=== PATIENT | female | born 1995 | race Caucasian/White ===

== ENCOUNTER → 2017-11-25 | Outpatient (CLI) | payer OTHER ==
[2017-11-25 15:07] LABS: Glucose 88 mg/dL (74-99)
[2017-11-25 15:09] LABS: HGB 12.9 gm/dL (11.4-16.0); MCH 31.4 pg (25.0-35.0); MCHC 33.1 g/dL (31.0-37.0); MCV 94.8 fL (80.0-100.0); Mean Platelet Volume 7.3; Platelet Count 272 k/uL (150-450); RBC 4.11 m/uL (3.80-5.40); RDW 12.5 % (11.5-15.5); WBC 10.1 k/uL (3.8-10.6)
--- NOTE | 2017-11-25 15:43 | US ---
EXAMINATION TYPE: Transabdominal DATE OF EXAM: 05/28/17 COMPARISON: NONE CLINICAL HISTORY: Z36 CONFIRM DATES. Confirm dates, 3, para 2 EXAM PERFORMED: Transabdominal (TA) EXAM MEASUREMENTS: GESTATIONAL AGE / DATING Physician Established: (9 weeks/1 days) EDC: 06/29/2018 Dates by LMP: (9 weeks/1 days) EDC: 06/29/2018 Dates by First Scan: This is 1st scan Dates by Current Scan for: ( 8 weeks/4 days) EDC: 07/03/2018 MATERNAL ANATOMY Uterus: 12.2 x 6.4 x 7.0cm, anteverted Right Ovary: 2.5 x 2.0 x 2.1cm Left Ovary: 3.1 x 1.6 x 1.6cm Post CDS / Adnexa: wnl Presence of free fluid: no Presence of corpus luteal cyst: right ovary: 1.2 x 1.2 x 1.1cm hypoechoic area, possible corpus luteu m Presence of subchorionic bleed: no GESTATION / SURVEY CRL: 2.0cm (8 weeks/4 days) Yolk Sac (normal less than 6mm): 3.9mm Heart Rate: 164 bpm Rhythm: Normal IUP: Viable IUP Date of LMP: 09/22/2017 Beta HcG (if available): Not available at time of exam. Viable single IUP measuring 8 weeks 4 days with a heart rate of 164bpm and an estimated delivery date of 07/03/2018. IMPRESSION: Viable single IUP measuring 8 weeks 4 days with a heart rate of 164bpm and an estimated delivery date of 07/03/2018.
[2017-11-26 04:08] LABS: HIV 1 AB Non-Reactive (Non-Reactive); HIV AB P24 Non-Reactive (Non-Reactive); HIV P24 AG Non-Reactive (Non-Reactive)
== END | disposition home or self-care (01) ==
LOC: RADUSWWP 14:36
PROVIDERS: ATTEND Obstetrics & Gynecology
DX: Z36.89 Encounter for other specified antenatal screening (principal); Z34.81 Encounter for supervision of other normal pregnancy, first trimester; Z3A.09 9 weeks gestation of pregnancy
CPT/HCPCS: 76801; 82565; 82947; 85027; 86762; 86780; 86850; 86900; 86901; 87340; 87390

== ENCOUNTER 2018-06-30 06:03 | Inpatient (IN) | payer OTHER ==
[2018-06-30] MEDS ORDERED: OXYTOCIN 10 UNIT/ML 1 ML VIAL IM PRN (06:12)
[2018-06-30] MEDS ORDERED: METHYLERGONOVINE 0.2 MG/ML 1 ML AMP IM PRN (06:12)
[2018-06-30] MEDS ORDERED: CARBOPROST TROMETHAMINE 250 MCG/ML 1 ML AMP IM PRN (06:12)
[2018-06-30] MEDS ORDERED: TERBUTALINE 1 MG/ML VIAL SQ PRN (06:12)
[2018-06-30] MEDS ORDERED: LIDOCAINE 0.5% (PF) 5 MG/ML (50 ML SDV) SQ PRN (06:12)
[2018-06-30] MEDS ORDERED: OXYTOCIN 30 UNITS/500 ML NS 30 UNIT in SALINE 1 500ML.BAG IV SCH (06:15)
[2018-06-30 06:20] VITALS: BMI 28.3
[2018-06-30] MEDS: LACTATED RINGERS 1,000 ML IV SCH ×3 (06:27→11:57)
[2018-06-30 06:37] LABS: Basophils % (A) 0 %; Eosinophils # (A) 0.2 k/uL (0-0.7); Eosinophils % (A) 2 %; HCT 36.4 % (34.0-46.0); HGB 12.4 gm/dL (11.4-16.0); Lymphocytes # (A) 2.3 k/uL (1.0-4.8); Lymphocytes % (A) 24 %; MCH 32.4 pg (25.0-35.0); MCHC 34.1 g/dL (31.0-37.0); MCV 95.1 fL (80.0-100.0); Monocytes # (A) 0.4 k/uL (0-1.0); Monocytes % (A) 4 %; Neutrophils # (A) 6.6 k/uL (1.3-7.7); Neutrophils % (A) 69 %; Platelet Count 217 k/uL (150-450); RBC 3.83 m/uL (3.80-5.40); RDW 13.4 % (11.5-15.5); WBC 9.6 k/uL (3.8-10.6)
[2018-06-30] MEDS ORDERED: BUTORPHANOL 1 MG/ML 1 ML VIAL IV PRN (07:50)
[2018-06-30] MEDS ORDERED: fentaNYL (PF) 50 MCG/ML 5 ML AMP ONE (11:03)
[2018-06-30] MEDS ORDERED: ROPIVACAINE 5MG/ML 20ML VIAL ONE (11:03)
[2018-06-30] MEDS ORDERED: SODIUM CHLORIDE 0.9% 100 ML BAG ONE (11:03)
[2018-06-30] MEDS ORDERED: ROPIVACAINE 100 MG, fentaNYL (PF) 200 MCG in SODIUM CHLORIDE 0.9% 76 ML EPIDURAL ONE (11:32)
--- NOTE | 2018-06-30 13:19 | P.HPOB ---
History of Present Illness H&P Date: 06/30/18 Chief Complaint: induction of labor 22 year old presents at 40 weeks 1 day for induction of labor. Her cervix is 3/80/-2 and she is marilee irregularly. heart tones are 130 with moderate variability and accels. Review of Systems All systems: negative Constitutional: Denies chills, Denies fever Eyes: denies blurred vision, denies pain Ears, nose, mouth and throat: Denies headache, Denies sore throat Cardiovascular: Denies chest pain, Denies shortness of breath Respiratory: Denies cough Gastrointestinal: Denies abdominal pain, Denies diarrhea, Denies nausea, Denies vomiting Genitourinary: Denies dysuria, Denies hematuria Musculoskeletal: Denies myalgias Integumentary: Denies pruritus, Denies rash Neurological: Denies numbness, Denies weakness Psychiatric: Denies anxiety, Denies depression Endocrine: Denies fatigue, Denies weight change Past Medical History Past Medical History: No Reported History Additional Past Medical History / Comment(s): OB history: She has had 2 previous vaginal deliveries. THis is her third and she had care with me since 8 weeks. A+, abs neg, Rub Imm, RPR NR, Hep B neg, HIV NR. GBS neg. abnormal 1hr, normal 3 hr GTT. History of Any Multi-Drug Resistant Organisms: None Reported Past Surgical History: No Surgical Hx Reported Past Anesthesia/Blood Transfusion Reactions: No Reported Reaction Past Psychological History: No Psychological Hx Reported Smoking Status: Never smoker Past Alcohol Use History: None Reported Past Drug Use History: None Reported - Past Family History Father Family Medical History: No Reported History Medications and Allergies Home Medications Medication Instructions Recorded Confirmed Type RX: Pnv,Calcium 72/Iron/Folic Acid 1 tab PO DAILY 09/13/15 06/30/18 History [ Plus Tablet] Allergies Allergy/AdvReac Type Severity Reaction Status Date / Time No Known Allergies Allergy Verified 06/30/18 06:10 Exam Osteopathic Statement: *. No significant issues noted on an osteopathic structural exam other than those noted in the History and Physical/Consult. Vital Signs Temp Pulse Resp BP 06/30/18 06:15 96.6 F L 113 H 14 126/71 Intake and Output 06/29/18 06/30/18 06/30/18 22:59 06:59 14:59 Other: Weight 72.575 kg HEart: RRR Lungs: CTAB Abdomen: soft, nontender Extremeties: neg saeed's Results Result Diagrams: 06/30/18 06:24 Assessment and Plan (1) Normal labor Current Visit: Yes Status: Acute Code(s): O80 - ENCOUNTER FOR FULL-TERM UNCOMPLICATED DELIVERY; Z37.9 - OUTCOME OF DELIVERY, UNSPECIFIED SNOMED Code(s): 01073923 Plan: 1. induction of labor with amniotomy and pitocin 2. anticipate normal vaginal delivery.
[2018-06-30] MEDS ORDERED: SIMETHICONE 80 MG CHEWABLE PO PRN (13:44)
[2018-06-30] MEDS ORDERED: WITCH HAZEL 1 EACH MED..PAD TOPICAL PRN (13:44)
[2018-06-30] MEDS ORDERED: diphenhydrAMINE 25 MG CAP PO PRN (13:44)
[2018-06-30] MEDS ORDERED: BENZOCAINE/MENTHOL SPRAY 1 GM/SPRAY AEROSOL TOPICAL PRN (13:44)
[2018-06-30] MEDS ORDERED: diphenhydrAMINE 50 MG CAP PO PRN (13:44)
[2018-06-30] MEDS ORDERED: diphenhydrAMINE 50 MG/ML 1 ML VIAL IVP PRN ×2 (13:44)
[2018-06-30] MEDS ORDERED: HYDROCORTISONE 2.5% RECTAL CREAM 30 GM TUBE RECTAL PRN (13:44)
[2018-06-30] MEDS ORDERED: ZOLPIDEM 5 MG TAB PO PRN (13:44)
[2018-06-30] MEDS ORDERED: ACETAMINOPHEN TAB 325 MG TAB PO PRN (13:44)
[2018-06-30] MEDS ORDERED: LANOLIN CREAM 5 GM TUBE TOPICAL PRN (13:44)
[2018-06-30] MEDS ORDERED: OXYTOCIN 20 UNITS/1000 ML NS 1,000 ML IV SCH (13:45)
[2018-06-30] MEDS: IBUPROFEN 600 MG TAB PO PRN (16:55)
[2018-06-30] MEDS: SENNOSIDES-DOCUSATE SODIUM 1 EACH TAB PO SCH (21:11)
[2018-07-01] MEDS: IBUPROFEN 600 MG TAB PO PRN (08:00)
[2018-07-01] MEDS: SENNOSIDES-DOCUSATE SODIUM 1 EACH TAB PO SCH (08:00)
[2018-07-01 08:14] VITALS: BP 122/69; PULSE 101; RESP 16; TEMP 97.9
--- NOTE | 2018-07-01 08:19 | P.DS ---
Providers Date of admission: 06/30/18 06:03 Expected date of discharge: 07/01/18 Attending physician: Maria Teresa Saunders Primary care physician: Stated None - Discharge Diagnosis(es) (1) Normal labor Current Visit: Yes Status: Resolved (2) Normal vaginal delivery Current Visit: Yes Status: Acute Hospital Course: Patient presented for induction of labor. She underwent normal vaginal delivery. Her course was uncomplicated. She'll be discharged home day #1 in stable condition to follow-up with me in 6 weeks. Plan - Discharge Summary New Discharge Prescriptions: New Ibuprofen [Motrin] 600 mg PO Q6HR PRN #30 tab PRN Reason: Mild Pain Or Fever >= 100.5 No Action Pnv,Calcium 72/Iron/Folic Acid [ Plus Tablet] 1 tab PO DAILY Discharge Medication List Pnv,Calcium 72/Iron/Folic Acid [ Plus Tablet] 1 tab PO DAILY 09/13/15 [History] Ibuprofen [Motrin] 600 mg PO Q6HR PRN #30 tab 07/01/18 [Rx] Follow up Appointment(s)/Referral(s): Maria Teresa Saunders DO [Doctor of Osteopathic Medicine] - 6 Weeks Discharge Disposition: HOME SELF-CARE
--- NOTE | 2018-07-01 08:20 | P.PROBDLV ---
Vaginal Delivery Note - . Vaginal Delivery Note: 22 year old presents at 40 weeks 1 day for induction of labor. Her cervix is 3/80/-2 and she is marilee irregularly. heart tones are 130 with moderate variability and accels. Pitocin was started. An amniotomy was performed at 7:49 AM clear fluid noted. When she was uncomfortable the patient did get an epidural. Her cervix was completely dilated at 1335. She pushed, delivered a viable female infant over intact perineum under epidural anesthesia at 1338. Head delivered OA, anterior shoulder delivered gentle downward guidance followed by posterior shoulder and rest of body. Nose and mouth bulb suctioned, cord clamped and cut, infant placed mother's abdomen. Apgars 9, 9, weight 7 lbs. 1 oz. Placenta delivered spontaneously, intact with three-vessel cord at 1340. Vagina, cervix, and perineum were inspected. No lacerations noted. Estimated blood loss 100 mL. Mother and baby in stable condition.
== END 2018-07-01 14:15 | disposition home or self-care (01) | DRG 807 ==
LOC: 4FBP 06:03
PROVIDERS: ADMIT Obstetrics & Gynecology; ATTEND Obstetrics & Gynecology
PROC: 10907ZC Drainage of Amniotic Fluid, Therapeutic from Products of Conception, Via Natural or Artificial Opening (ICD-10-PCS; 2018-06-30)
PROC: 3E033VJ Introduction of Other Hormone into Peripheral Vein, Percutaneous Approach (ICD-10-PCS; 2018-06-30)
PROC: 10E0XZZ Delivery of Products of Conception, External Approach (ICD-10-PCS; principal; 2018-07-01)
PROC: 00HU33Z Insertion of Infusion Device into Spinal Canal, Percutaneous Approach (ICD-10-PCS; 2018-07-01)
PROC: 3E0R3BZ Introduction of Anesthetic Agent into Spinal Canal, Percutaneous Approach (ICD-10-PCS; 2018-07-01)
DX: O80 Encounter for full-term uncomplicated delivery (principal); Z37.0 Single live birth; Z3A.40 40 weeks gestation of pregnancy
CPT/HCPCS: 85025; 86850; 86900; 86901

== ENCOUNTER → 2019-02-11 | Outpatient (CLI) | payer OTHER ==
[2019-02-11 14:24] LABS: HGB 12.9 gm/dL (11.4-16.0); MCH 31.8 pg (25.0-35.0); MCHC 33.9 g/dL (31.0-37.0); MCV 93.9 fL (80.0-100.0); Mean Platelet Volume 7.3; Platelet Count 283 k/uL (150-450); RBC 4.05 m/uL (3.80-5.40); RDW 12.4 % (11.5-15.5); WBC 11.3 k/uL (3.8-10.6)
[2019-02-11 14:39] LABS: African American GFR (CKD) >90 (>60 ml/min/1.73 sqM); Glucose 79 mg/dL (74-99); Non-African American GFR(CKD) >90 (>60 ml/min/1.73 sqM)
--- NOTE | 2019-02-11 15:24 | US ---
EXAMINATION TYPE: Transabdominal DATE OF EXAM: 02/11/2019 2:36 PM COMPARISON: NONE CLINICAL HISTORY: Z36 CONFIRM DATES. Positive beta-hCG test. EXAM PERFORMED: Transabdominal (TA) EXAM MEASUREMENTS: GESTATIONAL AGE / DATING Physician Established: Not yet established Dates by LMP: (12 weeks/2 days) EDC: 08/24/2019 Dates by First Scan: No previous this is first scan Dates by Current Scan for: (12 weeks/4 days) EDC: 08/22/2019 MATERNAL ANATOMY Uterus: 15.3 x 8.0 x 8.9 cm Right Ovary: 2.7 x 2.1 x 2.7 cm Left Ovary: 3.2 x 1.5 x 2.4 cm Post CDS / Adnexa: wnl Presence of free fluid: No Presence of corpus luteal cyst: Yes, left ovary measuring 1.5 x 1.3 x 1.1 cm Presence of subchorionic bleed: No GESTATION / SURVEY CRL: 6.1 cm (12 weeks/4 days) Heart Rate: 161 bpm Rhythm: Normal IUP: Viable IUP Date of LMP: 11/17/2018 Single live intrauterine gestation is seen as gestational sac and pole identified. Yolk sac not seen. No free fluid in pelvic cul-de-sac. Both ovaries are seen without concerning extraovarian adnexal mass. Left ovary shows 1.3 cm periphera l oval isoechoic area could reflect an involuting corpus luteal cyst. IMPRESSION: Single live intrauterine gestation is confirmed, mean crown-rump length is 6.1 cm corresp onding to 12 weeks 4 day old fetus.
[2019-02-11 19:55] LABS: Hepatitis B Surface Antigen Non-Reactive (Non-Reactive)
== END | disposition home or self-care (01) ==
LOC: RADUSWWP 13:50
PROVIDERS: ATTEND Obstetrics & Gynecology
DX: Z36.9 Encounter for antenatal screening, unspecified (principal); Z34.81 Encounter for supervision of other normal pregnancy, first trimester
CPT/HCPCS: 36415; 76801; 82565; 82947; 85027; 86762; 86780; 86850; 86900; 86901; 87340

== ENCOUNTER 2019-08-04 17:40 | Outpatient (CLI) | payer OTHER ==
[2019-08-04 18:25] VITALS: BP 122/59; PULSE 110; RESP 16; TEMP 97.4
--- NOTE | 2019-08-04 18:58 | P.MSEPDOC ---
Presenting Problems - Arrival Data Date of Arrival on Unit: 08/04/19 Time of Arrival on Unit: 17:40 Mode of Transport: Ambulatory - Complaint OB-Reason for Admission/Chief Complaint: Rule Out SROM Comment: Milky mucus d/c x 1 at 1300. Medical History - Information : 4 Para: 3 Term: 3 : 0 Abortions: Spontaneous or Elective: 0 Number of Living Children: 3 - Gestational Age Gestational Age by HERNANDEZ (wks/days): 37 Weeks and 1 Days Review of Systems - Review of Systems Constitutional: No problems Breast: No problems ENT: No problems Cardiovascular: No problems Respiratory: No problems Gastrointestinal: No problems Genitourinary: No problems Musculoskeletal: No problems Neurological: No problems Skin: No problems Vital Signs - Temperature Temperature: 97.4 F Temperature Source: Temporal Artery Scan - Pulse Right Sitting Brachial Pulse Rate: 110 Pulse Assessment Method: Automatic Cuff - Respirations Respiratory Rate: 16 Oxygen Delivery Method: Room Air O2 Sat by Pulse Oximetry: 98 - Blood Pressure Right Arm Sitting Blood Pressure: 122/59 Blood Pressure Mean: 80 Blood Pressure Source: Automatic Cuff Medical Screen Scoring (Pre) - Cervical Exam Dilation: Exam Deferred Effacement: Exam Deferred Membranes: Intact - Uterine Contractions Frequency: N/A - Maternal Vital Signs Maternal Temperature: N/A Maternal Blood Pressure: N/A Signs of Preeclampsia: N/A Maternal Respirations: N/A - Maternal Trauma Maternal Trauma: N/A - Assessment - Baby A Baseline FHR: 140 Heart Rate - NICHD Category: Category I (Normal) = 0 NST: Reactive Position: N/A Station: N/A - Total Score - Baby A Total Score - Baby A: 0 - Total Score - Baby B Total Score - Baby B: 0 - Total Score - Baby C Total Score - Baby C: 0 - Level of Risk - Baby A Level of Risk - Baby A: Low (0-5) - Level of Risk - Baby B Level of Risk - Baby B: Low (0-5) - Level of Risk - Baby C Level of Risk - Baby C: Low (0-5) Physician Notification (Pre) - Physician Notified Physician Notified Date: 08/04/19 Physician Notified Time: 18:14 New Order Received: Yes - Notification Comment Comment: Homar leigh\Dr. Arzate, advsd , 37 03/03, c/o possible SROM at 1300, one time mucus/milky discharge at 1300, no continued leaking, no contractions, reactive NST, has appt with Dr. Saunders tomorrow at 0900. States to d/c home. Disposition - Disposition OB Disposition: Discharge to home, Written follow up instructions reviewed Discharge Date: 08/04/19 Discharge Time: 18:17 I agree with the RN Medical Screening Exam: Yes Risk & Benefit of care provided described in d/c instruction: Yes Diagnosis: FALSE LABOR AT OR AFTER 37 COMPLETED WEEKS OF GESTATION
== END 2019-08-04 18:17 | disposition home or self-care (01) ==
LOC: FBPOP 17:40
PROVIDERS: ATTEND Obstetrics & Gynecology
DX: O47.1 False labor at or after 37 completed weeks of gestation (principal); Z3A.37 37 weeks gestation of pregnancy
CPT/HCPCS: 59025; 84112; G0463; 99213

== ENCOUNTER 2019-08-22 00:30 | Inpatient (IN) | payer OTHER ==
[2019-08-22] MEDS ORDERED: OXYTOCIN 10 UNIT/ML 1 ML VIAL IM PRN (01:10)
[2019-08-22] MEDS ORDERED: LIDOCAINE 0.5% (PF) 5 MG/ML (50 ML SDV) SQ PRN (01:10)
[2019-08-22] MEDS ORDERED: CARBOPROST TROMETHAMINE 250 MCG/ML 1 ML AMP IM PRN (01:10)
[2019-08-22] MEDS ORDERED: METHYLERGONOVINE 0.2 MG/ML 1 ML AMP IM PRN (01:10)
[2019-08-22] MEDS ORDERED: TERBUTALINE 1 MG/ML VIAL SQ PRN (01:10)
[2019-08-22] MEDS ORDERED: OXYTOCIN 30 UNITS/500 ML NS 30 UNIT in SALINE 1 500ML.BAG IV SCH (01:15)
[2019-08-22 01:24] VITALS: RESP 16
[2019-08-22 01:36] LABS: Basophils % (A) 0 %; Eosinophils # (A) 0.1 k/uL (0-0.7); Eosinophils % (A) 1 %; HCT 37.1 % (34.0-46.0); HGB 12.6 gm/dL (11.4-16.0); Lymphocytes # (A) 1.8 k/uL (1.0-4.8); Lymphocytes % (A) 17 %; MCH 31.6 pg (25.0-35.0); MCV 92.7 fL (80.0-100.0); Mean Platelet Volume 7.9; Monocytes # (A) 0.4 k/uL (0-1.0); Monocytes % (A) 4 %; Neutrophils # (A) 8.2 k/uL (1.3-7.7); Neutrophils % (A) 76 %; Platelet Count 274 k/uL (150-450); RDW 13.9 % (11.5-15.5); WBC 10.8 k/uL (3.8-10.6)
[2019-08-22] MEDS: LACTATED RINGERS 1,000 ML IV SCH ×2 (01:37→02:04)
[2019-08-22] MEDS ORDERED: AMPICILLIN 2,000 MG in SODIUM CHLORIDE 0.9% 100 ML IVPB STA (01:40)
--- NOTE | 2019-08-22 01:42 | P.HPOB ---
History of Present Illness H&P Date: 08/22/19 Chief Complaint: Contractions This patient is a pleasant 23-year-old 4 para 3 female estimated date of confinement 08/24/2019 estimated gestational age 39-5/7 weeks who presents to labor and delivery with complaints of contractions since earlier this evening. Patient is in the office morning was 2 cm dilated is now 5 cm dilated in active labor. Pre- care per Dr. Saunders appears to be uncomplicated. Review of Systems Genitourinary: Reports Menstruation: Reports amenorrhea Past Medical History Past Medical History: No Reported History Additional Past Medical History / Comment(s): Patient's had 3 spontaneous vaginal deliveries. History of Any Multi-Drug Resistant Organisms: None Reported Past Surgical History: No Surgical Hx Reported Past Anesthesia/Blood Transfusion Reactions: No Reported Reaction Past Psychological History: No Psychological Hx Reported Smoking Status: Never smoker Past Alcohol Use History: None Reported Past Drug Use History: None Reported - Past Family History Father Family Medical History: No Reported History Medications and Allergies Home Medications Medication Instructions Recorded Confirmed Type Pnv,Calcium 72/Iron/Folic Acid 1 tab PO DAILY 09/13/15 08/22/19 History [ Plus Tablet] Allergies Allergy/AdvReac Type Severity Reaction Status Date / Time No Known Allergies Allergy Verified 08/22/19 01:09 Exam Vital Signs Temp Pulse Resp BP Pulse Ox 08/22/19 01:21 97.0 F L 93 16 128/74 98 Intake and Output 08/21/19 08/21/19 08/22/19 14:59 22:59 06:59 Other: Weight 73.936 kg - OBG Physical Exam Abdomen: bowel sounds normal, no diffuse tenderness, no bruit present, no guarding noted, no hepatomegaly, no splenomegaly, no mass Vulva: both: normal Vagina: normal moisture, no discharge Cervix: Cervix is 5 cm dilated percent effaced -2 station. Uterus: enlarged (Fundal height consistent with gestational age.) Results blood work shows she is A positive rubella immune RPR is nonreactive hepatitis B is negative group B strep was negative, ultrasounds showed normal anatomy, 1 hour Glucola was abnormal however 3 hour GTT was normal. Assessment and Plan (1) 39 weeks gestation of Narrative/Plan: This is a pleasant 23-year-old 4 para 3 female 39-5/7 weeks' gestation who presents with complaints of regular painful contractions found to be in active labor. Patient has a history of positive group B strep with previous therefore plan is IV antibiotics, and anticipate vaginal delivery Current Visit: Yes Status: Acute Code(s): Z3A.39 - 39 WEEKS GESTATION OF SNOMED Code(s): 94809257 (2) History of group B Streptococcus (GBS) infection Current Visit: Yes Status: Acute Code(s): Z86.19 - PERSONAL HISTORY OF OTHER INFECTIOUS AND PARASITIC DISEASES SNOMED Code(s): 239394478 (3) Normal labor Current Visit: No Status: Resolved Code(s): O80 - ENCOUNTER FOR FULL-TERM UNCOMPLICATED DELIVERY; Z37.9 - OUTCOME OF DELIVERY, UNSPECIFIED SNOMED Code(s): 52556285
--- NOTE | 2019-08-22 02:58 | P.PROBDLV ---
Vaginal Delivery Note - . Vaginal Delivery Note: Normal spontaneous vaginal delivery viable female infant Apgars 8 and 9 delivery time is 0-46 hours. Please see dictated H&P for intimate details of this patient's admission. Brief summary this is a pleasant 23-year-old 4 para 3 female 39-5/7 weeks gestation admitted to labor and delivery in active labor. On admission patient is 5 cm dilated she is artificial rupture membranes for clear fluid. She is given 2 g and Due To History of Positive Strep in a Previous . Patient's Labor Progresses She Gets an Epidural for Pain Control. Patient Is to Complete Pushes the Head to the Perineum. Posterior Perineum Was Supported We Have Controlled Delivery of Infant's Head over the Intact Perineum. Mouth and Nares Are Bulb Suctioned. There Is No Evidence of a Nuchal Cord. With Gentle Downward Traction We Have Delivery Anterior Posterior Shoulder and Rest This 's Body. Infant's Position Is Os but Anterior Presentation. This Is a Vigorous Viable Female Infant Apgars 8 and 9 Delivery Time Is 0-46 Hours. Has Spontaneous Respirations and Good Cry. After Delivery of the the Umbilical Cord Is Doubly Clamped and Cut after This Done Pulsating. The Placenta Spontaneously Delivered Intact Estimated Blood Loss 100 ML. There Are No Lacerations No Repairs Required.
[2019-08-22] MEDS ORDERED: SIMETHICONE 80 MG CHEWABLE PO PRN (02:59)
[2019-08-22] MEDS ORDERED: HYDROCORTISONE 2.5% RECTAL CREAM 30 GM TUBE RECTAL PRN (02:59)
[2019-08-22] MEDS ORDERED: diphenhydrAMINE 50 MG/ML 1 ML VIAL IVP PRN (02:59)
[2019-08-22] MEDS ORDERED: WITCH HAZEL 1 EACH MED..PAD TOPICAL PRN (02:59)
[2019-08-22] MEDS ORDERED: diphenhydrAMINE 25 MG CAP PO PRN (02:59)
[2019-08-22] MEDS ORDERED: ZOLPIDEM 5 MG TAB PO PRN (02:59)
[2019-08-22] MEDS ORDERED: ACETAMINOPHEN TAB 325 MG TAB PO PRN (02:59)
[2019-08-22] MEDS ORDERED: LANOLIN CREAM 5 GM TUBE TOPICAL PRN (02:59)
[2019-08-22] MEDS ORDERED: BISACODYL 10 MG SUPP RECTAL PRN (02:59)
[2019-08-22] MEDS ORDERED: BENZOCAINE/MENTHOL SPRAY 1 GM/SPRAY AEROSOL TOPICAL PRN (02:59)
[2019-08-22] MEDS ORDERED: OXYTOCIN 20 UNITS/1000 ML NS 1,000 ML IV SCH (03:00)
[2019-08-22] MEDS: IBUPROFEN 600 MG TAB PO PRN ×2 (05:16→15:41)
[2019-08-22] MEDS ORDERED: AMPICILLIN 1,000 MG in SODIUM CHLORIDE 0.9% 50 ML IVPB SCH (06:00)
[2019-08-22] MEDS: SENNOSIDES-DOCUSATE SODIUM 1 EACH TAB PO SCH (08:45)
[2019-08-22] MEDS ORDERED: ROPIVACAINE 100 MG, fentaNYL (PF) 200 MCG in SODIUM CHLORIDE 0.9% 76 ML EPIDURAL ONE (18:42)
--- NOTE | 2019-08-23 06:21 | P.PNOBGVD ---
Subjective - Subjective Patient reports: Reports appetite normal, Reports voiding normally, Reports pain well controlled, Reports ambulating normally : doing well Objective - Latest Vital Signs Latest vital signs: Vital Signs Temp Pulse Resp BP 08/23/19 00:00 98.2 F 82 16 105/58 08/22/19 15:52 98.3 F 72 16 119/70 08/22/19 11:54 98.2 F 68 16 115/73 08/22/19 08:00 98.1 F 67 16 114/67 Intake and Output 08/22/19 08/22/19 08/23/19 14:59 22:59 06:59 Other: # Voids 1 - Exam Lungs: bilateral: normal Chest: Normal S1, Normal S2 Extremities: Present: normal Abdomen: Present: normal appearance, soft Uterus: Present: normal, firm Assessment and Plan Assessment: day #1. Patient is resting without complaints and wishes to go home. Vital signs are stable and she is afebrile. Uterus is firm nontender she's having normal lochia. My impression is a normal course. Plan is to continue routine care and discharge home today. (1) 39 weeks gestation of Current Visit: Yes Status: Acute Code(s): Z3A.39 - 39 WEEKS GESTATION OF PRE GNANCY SNOMED Code(s): 87213837 (2) History of group B Streptococcus (GBS) infection Current Visit: Yes Status: Acute Code(s): Z86.19 - PERSONAL HISTORY OF OTHER INFECTIOUS AND PARASITIC DISEASES SNOMED Code(s): 394945285 (3) Normal labor Current Visit: No Status: Resolved Code(s): O80 - ENCOUNTER FOR FULL-TERM UNCOMPLICATED DELIVERY; Z37.9 - OUTCOME OF DELIVERY, UNSPECIFIED SNOMED Code(s): 03909115
--- NOTE | 2019-08-23 06:24 | P.DS ---
Providers Date of admission: 08/22/19 01:00 Expected date of discharge: 08/23/19 Attending physician: Maria Teresa Saunders Primary care physician: Stated None - Discharge Diagnosis(es) (1) 39 weeks gestation of Current Visit: Yes Status: Acute (2) History of group B Streptococcus (GBS) infection Current Visit: Yes Status: Acute (3) Normal labor Current Visit: No Status: Resolved Hospital Course: Please see dictated H&P for intimate details of this patient's admission. Brief summary this pleasant 23-year-old 4 para 3 female 39-5/7 weeks gestation who is admitted to labor and delivery in active labor. Patient quickly goes on have a vaginal delivery viable female infant please see dictated delivery note. day #1 patient without complaints wishes to go home. Patient's felt be stable for discharge home follow up with Dr. Saunders 6 weeks. Procedures: Normal spontaneous vaginal delivery Patient Condition at Discharge: Good Plan - Discharge Summary New Discharge Prescriptions: New Ibuprofen [Motrin] 600 mg PO Q6HR PRN #40 tab PRN Reason: Mild Pain Or Fever >= 100.5 No Action Pnv,Calcium 72/Iron/Folic Acid [ Plus Tablet] 1 tab PO DAILY Discharge Medication List Pnv,Calcium 72/Iron/Folic Acid [ Plus Tablet] 1 tab PO DAILY 09/13/15 [History] Ibuprofen [Motrin] 600 mg PO Q6HR PRN #40 tab 08/23/19 [Rx] Follow up Appointment(s)/Referral(s): Maria Teresa Saunders DO [Doctor of Osteopathic Medicine] - 6 Weeks Patient Instructions/Handouts: Vaginal Delivery (DC) Activity/Diet/Wound Care/Special Instructions: No intercourse or anything per vagina for 6 weeks. Please call if any fever, chills, excessive vaginal bleeding, and/or abdominal pain. Discharge Disposition: HOME SELF-CARE
[2019-08-23] MEDS: SENNOSIDES-DOCUSATE SODIUM 1 EACH TAB PO SCH (07:42)
[2019-08-23] MEDS: IBUPROFEN 600 MG TAB PO PRN (07:43)
[2019-08-23 07:51] VITALS: BP 110/75; PULSE 63; TEMP 98.4
--- NOTE | 2019-08-25 17:18 | P.MSEPDOC ---
Presenting Problems - Arrival Data Date of Arrival on Unit: 08/22/19 Time of Arrival on Unit: 01:00 Mode of Transport: Wheelchair - Complaint OB-Reason for Admission/Chief Complaint: Possible Onset of Labor Medical History - Information : 4 Para: 3 Term: 3 : 0 Abortions: Spontaneous or Elective: 0 Number of Living Children: 3 - Gestational Age Gestational Age by HERNANDEZ (wks/days): 39 Weeks and 5 Days Review of Systems - Review of Systems Constitutional: No problems Breast: No problems ENT: No problems Cardiovascular: No problems Respiratory: No problems Gastrointestinal: No problems Genitourinary: No problems Musculoskeletal: No problems Neurological: No problems Skin: No problems Vital Signs - Temperature Temperature: 98.4 F Temperature Source: Oral - Pulse Right Sitting Brachial Pulse Rate: 63 Pulse Assessment Method: Automatic Cuff - Respirations Respiratory Rate: 16 Oxygen Delivery Method: Room Air - Blood Pressure Right Arm Sitting Blood Pressure: 110/75 Blood Pressure Mean: 86 Blood Pressure Source: Automatic Cuff Medical Screen Scoring (Pre) - Cervical Exam Dilation: 4-7 cm = 2 Effacement: More than 50% = 2 Membranes: Intact - Uterine Contractions Frequency: > 5 minutes apart = 1 Duration: > 40 seconds = 2 Intensity: Contraction palpated strong = 1 - Maternal Vital Signs Maternal Temperature: N/A Maternal Blood Pressure: N/A Signs of Preeclampsia: N/A - Maternal Trauma Maternal Trauma: N/A - Assessment - Baby A Baseline FHR: 130 Heart Rate - NICHD Category: Category I (Normal) = 0 NST: Reactive Position: N/A Station: N/A - Total Score - Baby A Total Score - Baby A: 8 - Total Score - Baby B Total Score - Baby B: 8 - Total Score - Baby C Total Score - Baby C: 8 - Level of Risk - Baby A Level of Risk - Baby A: Medium (6-9) - Level of Risk - Baby B Level of Risk - Baby B: Medium (6-9) - Level of Risk - Baby C Level of Risk - Baby C: Medium (6-9) Physician Notification (Pre) - Physician Notified Physician Notified Date: 08/22/19 Physician Notified Time: 01:00 New Order Received: Yes Disposition - Disposition OB Disposition: Admit, LDRP Suite Discharge Date: 08/23/19 Discharge Time: 09:25 I agree with the RN Medical Screening Exam: Yes Risk & Benefit of care provided described in d/c instruction: Yes Diagnosis: ENCOUNTER FOR FULL-TERM UNCOMPLICATED DELIVERY
== END 2019-08-23 09:25 | disposition home or self-care (01) | DRG 807 ==
LOC: FBPOP 00:30 → 4FBP 01:00
PROVIDERS: ADMIT Obstetrics & Gynecology; ATTEND Obstetrics & Gynecology
PROC: 10E0XZZ Delivery of Products of Conception, External Approach (ICD-10-PCS; principal; 2019-08-22)
DX: O80 Encounter for full-term uncomplicated delivery (principal); Z37.0 Single live birth; Z3A.39 39 weeks gestation of pregnancy; Z86.19 Personal history of other infectious and parasitic diseases
CPT/HCPCS: 85025; 86850; 86900; 86901